=== PATIENT | female | born 1960 | race African-American/Black ===

== ENCOUNTER 2021-06-08 17:57 | Emergency (ER) | payer OTHER ==
[~2021-06-08] VITALS: Ht 160 cm; Wt 54.4 kg
[2021-06-08] MEDS ORDERED: FLEXERIL PO (18:24)
[2021-06-08] MEDS ORDERED: NEURONTIN 300M300 M2 PO (18:24)
[2021-06-08] MEDS ORDERED: ZOLOFT100 MG PO (18:24)
[2021-06-08] MEDS ORDERED: PROAIR HFA8.5 GM INH (18:25)
[2021-06-08] MEDS ORDERED: SPIRIVA18 MCG INH (18:25)
[2021-06-08] MEDS ORDERED: TESSALON PERLE100 M1 PO (18:25)
[2021-06-08] MEDS ORDERED: PROTONIX 20 MG20 MG PO (18:26)
[2021-06-08 18:27] LABS: ABSOLUTE NEUTROPHILS 4.3 thou/uL (1.4-8.2); EOSINOPHILS 1.4 % (0.0-3.0); HEMATOCRIT 44.1 % (37.0-47.0); HEMOGLOBIN 14.8 gm/dL (12.0-15.0); LYMPHOCYTES 28.3 % (24.0-44.0); MCH 30.5 pg (26.0-34.0); MCHC 33.7 g/dL (28.0-37.0); MCV 90.6 fL (80.0-100.0); MONOCYTES 5.8 % (1.0-8.0); PLATELET COUNT 205 thou/uL (150-400); POLYS 63.5 % (36.0-66.0); RBC 4.86 mil/uL (4.20-5.00); RDW 13.5 % (10.5-14.5); WBC 6.8 thou/uL (4.0-11.0)
[2021-06-08] MEDS ORDERED: IBU400 MG PO (18:27)
[2021-06-08] MEDS ORDERED: FLAGYL500 M1 PO (18:27)
[2021-06-08 18:37] LABS: CALCIUM 8.8 mg/dL (8.5-10.1); POTASSIUM 3.4 mmol/L (3.5-5.1)
[2021-06-08 18:47] LABS: ALBUMIN 4.2 g/dL (3.4-5.0); TOTAL BILIRUBIN 0.4 mg/dL (0.2-1.0); TOTAL PROTEIN 7.5 g/dL (6.4-8.2)
[2021-06-08 20:11] LABS: URINE BILIRUBIN NEGATIVE (Negative); URINE BLOOD NEGATIVE (Negative); URINE CLARITY CLEAR; URINE COLOR YELLOW; URINE GLUCOSE-RANDOM* NEGATIVE (Negative); URINE KETONES NEGATIVE (Negative); URINE LEUKOCYTES-REFLEX 1+ (Negative); URINE NITRITE-REFLEX NEGATIVE (Negative); URINE PROTEIN (DIPSTICK) NEGATIVE (Negative); URINE UROBILINOGEN 0.2 E.U./dl (0.2-1.0)
[2021-06-08 20:28] LABS: CASTS None Seen /LPF (None Seen); SQUAMOUS 4-10 Moderate /LPF (0-3)
[2021-06-08 20:29] LABS: BACTERIA-REFLEX 1-9 Few /HPF (None Seen); CRYSTALS None Seen /LPF (None Seen); URINE RBC None Seen /HPF (NONE SEEN); URINE WBC-REFLEX 0-5 Rare /HPF (0-5)
[2021-06-08 21:37] VITALS: BP 100/56
--- NOTE | 2021-06-09 15:14 | EKG ---
[place] [address] [facility] [place] [employer] [place] [address] ELECTROCARDIOGRAM REPORT Name: BRANDIN KERR Room #: [facility]#: [id number] Admission: 06/08/21 Attend Phys: Discharge: 06/08/21 Date of : 64 Report #: [id number] [facility] ED Test Date: 2021-06-08 Test Time: 18:03:30 Pat Name: BRANDIN KERR Department: Room: Gender: F Business Systems Manager: LUIS : 1960 Requested By: Darío Parker Order Number: [id number] MD: Gerald Ochoa Measurements Intervals [place] Rate: 112 P: 78 TX: 145 QRS: -69 QRSD: 95 T: 60 QT: 331 QTc: 452 Interpretive Statements Sinus tachycardia Biatrial enlargement Left axis deviation RSR' in V1 or V2, probably normal variant No previous ECG available for comparison Electronically Signed On 06-09-2021 15:14:14 CDT by Gerald Ochoa [email or web address] <ELECTRONICALLY SIGNED> By: Gerald Ochoa MD, [facility] 06/09/21 1514 1803 1803 Gerald Ochoa MD, FACC /EPI
== END 2021-06-08 21:38 | disposition home or self-care (01) ==
LOC: ER 17:57
PROVIDERS: Emergency Medicine
DX: R07.89 Other chest pain (principal); Z79.899 Other long term (current) drug therapy; Z88.0 Allergy status to penicillin; Z88.2 Allergy status to sulfonamides